=== PATIENT | female | born 1965 | race Caucasian/White ===

== ENCOUNTER 2019-01-14 17:38 | Inpatient (IN) | payer OTHER ==
[~2019-01-14] VITALS: Ht 165.1 cm; Wt 101.0 kg
[~2019-01-14 17:38] MED LIST: Bactrim Ds Tab1 EACH PO; CEPH500 PO; CETI5 PO; Excedrin Extra1 EACH PO; GABA300 PO; GUAI600T33 PO; IBUP800 PO
[2019-01-14 18:15] LABS: BASOPHILS ABSOLUTE AUTO 0.05 K/mm3 (0.00-0.23); BASOPHILS PERCENT AUTO 0 % (0-2); EOSINOPHILS ABSOLUTE AUTO 0.01 K/mm3 (0.00-0.68); EOSINOPHILS PERCENT AUTO 0 % (0-6); Hematocrit 45.8 % (33.0-51.0); Hemoglobin 13.8 g/dL (11.5-16.0); IMMATURE GRAN ABSOLUTE AUTO 0.05 K/mm3 (0.00-0.10); IMMATURE GRAN PERCENT AUTO 0 % (0-1); LYMPHOCYTES ABSOLUTE AUTO 0.77 K/mm3 (0.84-5.20); LYMPHOCYTES PERCENT AUTO 6 % (21-46); MONOCYTES ABSOLUTE AUTO 0.81 K/mm3 (0.16-1.47); MONOCYTES PERCENT AUTO 6 % (4-13); Mean Corpuscular HGB 26.3 pg (26.0-34.0); Mean Corpuscular HGB Conc 30.1 g/dL (31.5-36.5); Mean Corpuscular Volume 87 fL (80-100); NEUTROPHILS ABSOLUTE AUTO 11.57 K/mm3 (1.96-9.15); NEUTROPHILS PERCENT AUTO 87 % (41-73); NRBC ABSOLUTE 0.05 K/mm3 (0.00-0.02); NRBC Auto 0.4 /100 WBC (0.0-0.2); RDW Coefficient Variation 16.3 % (11.7-14.2); RDW Standard Deviation 51.8 fL (35.1-46.3); Red Blood Cell Count 5.24 M/mm3 (3.80-5.20); White Blood Cell Count 13.26 K/mm3 (4.00-11.30)
[2019-01-14 18:20] LABS: Mean Platelet Volume 9.8 fL (9.1-12.4); Platelet Count 282 K/mm3 (150-400)
[2019-01-14 18:40] LABS: Alanine Aminotransfer (ALT/SGP 29 U/L (12-78); Albumin, Blood 3.2 g/dL (3.4-5.0); Albumin/Globulin Ratio 0.8 (0.8-1.8); Alk Phos 141 U/L (50-136); Anion Gap 9 mmol/L (6-16); Aspartate Aminotrans (AST/SGOT 32 U/L (12-37); Bilirubin, Total 1.1 mg/dL (0.1-1.0); Blood Urea Nitrogen 7 mg/dL (8-24); CO2, Blood 27 mmol/L (21-32); Calcium, Blood 9.3 mg/dL (8.5-10.1); Chloride, Blood 96 mmol/L (98-108); Creatinine, Blood 0.58 mg/dL (0.40-1.00); Glomerular Filtration Rate >60 (60-); Glucose, Blood 106 mg/dL (70-99); Potassium, Blood 3.9 mmol/L (3.5-5.5); Sodium, Blood 132 mmol/L (136-145); Total Protein, Blood 7.2 g/dL (6.4-8.2); Troponin I 0.032 ng/mL (0.000-0.040)
[2019-01-14 20:39] LABS: Source, Urine Clean Catch
[2019-01-14 20:42] LABS: Appearance, Urine Clear (Clear); Bilirubin, Urine Neg (Neg); Blood, Urine 1+ (Neg); Color, Urine Amber (P-Yellow); Glucose Qualitative, Urine Neg (Neg); Ketones, Urine 1+ (Neg); Leukocyte Esterase, Urine 1+ (Neg); Nitrite, Urine Pos (Neg); Protein, Urine 3+ (Neg); Urobilinogen, Urine 1+ (Normal)
[2019-01-14 20:49] LABS: Bacteria Mod /hpf; Red Blood Cells, Urine 0-2 /hpf (0-2); Squamous Epithelial Cells Many /hpf (Few); White Blood Cells, Urine 0-2 /hpf (0-5)
[2019-01-14 20:53] LABS: U Amphetamine Screen Not Detected; U Barbituate Screen Not Detected; U Benzodiazapine Screen DETECTED; U Buprenorphine Screen Not Detected; U Cannabinoids Screen Not Detected; U Cocaine Screen Not Detected; U Methadone Screen Not Detected; U Methamphetamine Screen Not Detected; U Opiates Screen DETECTED; U Oxycodone Screen Not Detected; U Phencyclidine Screen Not Detected; U Propoxyphene Screen Not Detected
[2019-01-14 21:51] LABS: International Normalized Ratio 1.2; Prothrombin Time Results 12.5 Sec (9.7-11.5)
[2019-01-15 04:23] LABS: BASOPHILS ABSOLUTE AUTO 0.02 K/mm3 (0.00-0.23); BASOPHILS PERCENT AUTO 0 % (0-2); EOSINOPHILS PERCENT AUTO 0 % (0-6); Hematocrit 42.1 % (33.0-51.0); Hemoglobin 12.7 g/dL (11.5-16.0); IMMATURE GRAN ABSOLUTE AUTO 0.07 K/mm3 (0.00-0.10); IMMATURE GRAN PERCENT AUTO 1 % (0-1); LYMPHOCYTES ABSOLUTE AUTO 0.75 K/mm3 (0.84-5.20); LYMPHOCYTES PERCENT AUTO 7 % (21-46); MONOCYTES ABSOLUTE AUTO 0.28 K/mm3 (0.16-1.47); MONOCYTES PERCENT AUTO 3 % (4-13); Mean Corpuscular HGB 26.7 pg (26.0-34.0); Mean Corpuscular HGB Conc 30.2 g/dL (31.5-36.5); Mean Corpuscular Volume 88 fL (80-100); Mean Platelet Volume 9.9 fL (9.1-12.4); NEUTROPHILS ABSOLUTE AUTO 10.19 K/mm3 (1.96-9.15); NEUTROPHILS PERCENT AUTO 90 % (41-73); Platelet Count 269 K/mm3 (150-400); RDW Coefficient Variation 16.1 % (11.7-14.2); RDW Standard Deviation 52.3 fL (35.1-46.3); Red Blood Cell Count 4.76 M/mm3 (3.80-5.20); White Blood Cell Count 11.31 K/mm3 (4.00-11.30)
[2019-01-15 04:39] LABS: International Normalized Ratio 1.3; Prothrombin Time Results 13.5 Sec (9.7-11.5)
[2019-01-15 04:47] LABS: Alanine Aminotransfer (ALT/SGP 26 U/L (12-78); Albumin, Blood 2.9 g/dL (3.4-5.0); Albumin/Globulin Ratio 0.8 (0.8-1.8); Alk Phos 118 U/L (50-136); Anion Gap 6 mmol/L (6-16); Aspartate Aminotrans (AST/SGOT 22 U/L (12-37); Bilirubin, Total 0.8 mg/dL (0.1-1.0); Blood Urea Nitrogen 8 mg/dL (8-24); Bun/Creatinine Ratio 15.9 (12.0-20.0); CO2, Blood 29 mmol/L (21-32); Calcium, Blood 8.4 mg/dL (8.5-10.1); Chloride, Blood 100 mmol/L (98-108); Globulin, Blood 3.6 g/dL (2.2-4.0); Glomerular Filtration Rate >60 (60-); Glucose, Blood 143 mg/dL (70-99); Potassium, Blood 3.8 mmol/L (3.5-5.5); Sodium, Blood 135 mmol/L (136-145); Total Protein, Blood 6.5 g/dL (6.4-8.2)
[2019-01-15 04:48] LABS: Troponin I 0.033 ng/mL (0.000-0.040)
--- NOTE | 2019-01-15 07:47 | NUR ---
END OF SHIFT SUMMARY ASSUMED CARE OF PT FROM ED. PT TO ROOM, PALE COLOR. AFLUTTER 130'S, PER NU REPORT, TO FINISH SEPSSIS FLUIDS AND IV ABX TO SEE IF HR WOULD DECREASE. HR REMAINED @135. DR ZIEGLER CALLED REGARDING THIS, BP HAS REMAINED STABLE. DR ORDERED IV METOPROL 5MG ONCE, AND THEN ONCE MORE IF THE FIRST DOSE UNSUCCESFUL AT LOWERING HR BELOW 110. BOTH DOSES ULTIMATELY GIVEN ENDING WITH A TOTAL OF 10MG IV METOPROL. HR HAS REMAINED IN 130'S AFLUTTER. THIS HAS BEEN RELAYED TO ONCOMING NURSE. PT HAS REMAINED ON 2L, HAS DENIED CP/PRESSURE. PT ORDERED TO BE IN CONTACT PRECAUTIONS, MRSA CLEARED IN 2017, DAY NURSE TO CONTACT INFECTION CONTROL RERGARDING THIS MATTER. PT HAS RECEIVED SEPSIS PROTOCOL FLUIDS/ABX. VSS HAVE REMAINED STABLE EXCEPT HR. PT TO RECEOVE VENOUS ULCER DUPLEX THIS AM. CALL LIGHT WITHIN REACH, REPORT GIVEN TO ONCOMING NURSE JENISE.
[2019-01-15 13:18] LABS: Source, Urine Catheter
[2019-01-15 13:26] LABS: Bilirubin, Urine Neg (Neg); Blood, Urine Neg (Neg); Glucose Qualitative, Urine Neg (Neg); Ketones, Urine Neg (Neg); Leukocyte Esterase, Urine Neg (Neg); Nitrite, Urine Neg (Neg); Protein, Urine Neg (Neg); Specific Gravity, Urine 1.015 (1.003-1.022); Urobilinogen, Urine NORM (Normal); pH, Urine 6.5 (5.0-8.0)
[2019-01-15 13:33] LABS: Appearance, Urine Clear (Clear); Color, Urine Pale Yellow (P-Yellow)
--- NOTE | 2019-01-15 19:08 | NUR ---
Per admit trigger, I met with Geno to offer information regarding an Advanced Directive for her. She was pleasantly dismissive saying she has one completed at home. I encouraged providing Pinky with a copy.
--- NOTE | 2019-01-15 19:26 | NUR ---
PT HAD A GOOD DAY, SHE HAS BEEN UP AND DOWN EMOTIONALLY. PT SEEMS TO UNDERSTAND HER DIAGNOSIS AND CONDITION, THIS RN SPENT A LOT OF TIME ANSWERING QUESTIONS AND EXPLAINING HER CURRENT ILLNESS. PT EXPRESSED THANKS AND WHEN FAMILY ARRIVED TO UNIT, ASKED ME TO EXPLAIN TO HER FAMILY HER CONDITION. PT HAS NOT REQUIRED O2 TODAY. PT UP TO BSC WITH SBA FOR SAFETY. HEPARIN RUNNING AT 17 U/K/HR. BED LOCKED AND LOW, HOB ELEVATED, CALL LIGHT WITHIN EASY REACH OF PATIENT. GAVE REPORT TO JOSE NAQVI.
[2019-01-16 04:10] LABS: BASOPHILS ABSOLUTE AUTO 0.05 K/mm3 (0.00-0.23); BASOPHILS PERCENT AUTO 0 % (0-2); EOSINOPHILS ABSOLUTE AUTO 0.01 K/mm3 (0.00-0.68); EOSINOPHILS PERCENT AUTO 0 % (0-6); Hematocrit 39.7 % (33.0-51.0); Hemoglobin 11.9 g/dL (11.5-16.0); IMMATURE GRAN ABSOLUTE AUTO 0.08 K/mm3 (0.00-0.10); IMMATURE GRAN PERCENT AUTO 1 % (0-1); LYMPHOCYTES ABSOLUTE AUTO 2.14 K/mm3 (0.84-5.20); LYMPHOCYTES PERCENT AUTO 16 % (21-46); MONOCYTES ABSOLUTE AUTO 1.79 K/mm3 (0.16-1.47); MONOCYTES PERCENT AUTO 14 % (4-13); Mean Corpuscular HGB 26.5 pg (26.0-34.0); Mean Corpuscular Volume 88 fL (80-100); Mean Platelet Volume 10.1 fL (9.1-12.4); NEUTROPHILS ABSOLUTE AUTO 8.94 K/mm3 (1.96-9.15); NEUTROPHILS PERCENT AUTO 69 % (41-73); NRBC ABSOLUTE 0.05 K/mm3 (0.00-0.02); NRBC Auto 0.4 /100 WBC (0.0-0.2); Platelet Count 286 K/mm3 (150-400); RDW Coefficient Variation 16.4 % (11.7-14.2); RDW Standard Deviation 52.7 fL (35.1-46.3); Red Blood Cell Count 4.49 M/mm3 (3.80-5.20); White Blood Cell Count 13.01 K/mm3 (4.00-11.30)
--- NOTE | 2019-01-16 04:31 | NUR ---
SHIFT SUMMARY: PATIENT SLEPT WELL THIS SHIFT, HR SLOWLY DECREASING CLOSER TO NORMAL RANGE. ALL OTHER VSS, CALL LIGHT WITHIN REACH, BED LOW AND LOCKED.
[2019-01-16 04:35] LABS: Alanine Aminotransfer (ALT/SGP 23 U/L (12-78); Albumin, Blood 2.7 g/dL (3.4-5.0); Albumin/Globulin Ratio 0.8 (0.8-1.8); Alk Phos 106 U/L (50-136); Anion Gap 8 mmol/L (6-16); Aspartate Aminotrans (AST/SGOT 23 U/L (12-37); Bilirubin, Total 0.5 mg/dL (0.1-1.0); Blood Urea Nitrogen 15 mg/dL (8-24); CO2, Blood 29 mmol/L (21-32); Calcium, Blood 7.9 mg/dL (8.5-10.1); Chloride, Blood 103 mmol/L (98-108); Creatinine, Blood 0.65 mg/dL (0.40-1.00); Globulin, Blood 3.3 g/dL (2.2-4.0); Glomerular Filtration Rate >60 (60-); Glucose, Blood 104 mg/dL (70-99); Potassium, Blood 3.6 mmol/L (3.5-5.5); Sodium, Blood 140 mmol/L (136-145)
[2019-01-16 04:46] LABS: Digoxin (Lanoxin) 1.15 ug/mL (0.80-2.00)
--- NOTE | 2019-01-16 07:23 | NUR ---
RECEIVED REPORT AND ASSUMED CARE OF PATIENT, SHE IS RESTING, BUT STATES SHE DID NOT SLEEP LAST NIGHT. PT REPORTS THAT SHE HAS BEEN RECEIVING SUPPORT FROM HER SIGNIFICANT OTHER AND SON, AND IS CONTINUING TO RECKON WITH HER CONDITION. PT ON ROOM AIR WITH O2 SAT 95%. NO COMPLAINTS OF PAIN OR DISCOMFORT AT THIS TIME. BED LOCKED AND LOW, HOB ELEVATED, CALL LIGHT WITHIN EASY REACH.
[2019-01-16 08:28] LABS: Vancomycin, Trough 17.6 ug/mL (5.0-10.0)
--- NOTE | 2019-01-16 10:00 | NUR ---
ASSUMED CARE OF PATIENT, REPORT RECIEVED FROM JENISE GARCIA. PT IS RESTING COMFORTABLY IN BED WATCHING TV, PT DENIES NEEDS AT THIS TIME. WILL CONTINUE TO MONITOR.
--- NOTE | 2019-01-16 11:30 | NUR ---
ASSESSMENT: VSS. ASSESSMENT UNCHANGED. PT DENIES NEEDS AT THIS TIME, WILL CONTINUE TO MONITOR.
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
--- NOTE | 2019-01-16 17:35 | NUR ---
PATIENT HAS HAD A GOOD DAY. SHE HAS BEEN RESTING COMFORTABLY IN BED T/O THE SHIFT. VSS. PT CONTINUES TO BE ON HEPARIN GTT AT 15UNITS/KG/HR. DISCUSSED WITH PALLIATIVE CARE PTS PROGNOSIS AND THE IMPORTANCE OF THEIR ASSESSMENT AND FOLLOW UP. NO ACUTE CHANGES THIS SHIFT. WILL REPORT TO ONCOMING RN.
[2019-01-16 18:52] LABS: International Normalized Ratio 1.16; Prothrombin Time Results 12.1 Sec (9.7-11.5)
[2019-01-17 04:02] LABS: BASOPHILS ABSOLUTE AUTO 0.05 K/mm3 (0.00-0.23); BASOPHILS PERCENT AUTO 0 % (0-2); EOSINOPHILS ABSOLUTE AUTO 0.11 K/mm3 (0.00-0.68); EOSINOPHILS PERCENT AUTO 1 % (0-6); Hematocrit 41.1 % (33.0-51.0); Hemoglobin 12.2 g/dL (11.5-16.0); IMMATURE GRAN ABSOLUTE AUTO 0.05 K/mm3 (0.00-0.10); IMMATURE GRAN PERCENT AUTO 0 % (0-1); LYMPHOCYTES ABSOLUTE AUTO 2.46 K/mm3 (0.84-5.20); LYMPHOCYTES PERCENT AUTO 19 % (21-46); MONOCYTES PERCENT AUTO 12 % (4-13); Mean Corpuscular HGB 26.3 pg (26.0-34.0); Mean Corpuscular HGB Conc 29.7 g/dL (31.5-36.5); Mean Corpuscular Volume 89 fL (80-100); Mean Platelet Volume 9.9 fL (9.1-12.4); NEUTROPHILS ABSOLUTE AUTO 8.81 K/mm3 (1.96-9.15); NEUTROPHILS PERCENT AUTO 68 % (41-73); Platelet Count 283 K/mm3 (150-400); RDW Coefficient Variation 16.4 % (11.7-14.2); RDW Standard Deviation 52.6 fL (35.1-46.3); Red Blood Cell Count 4.64 M/mm3 (3.80-5.20); White Blood Cell Count 12.98 K/mm3 (4.00-11.30)
[2019-01-17 04:27] LABS: Magnesium, Blood 1.9 mg/dL (1.6-2.4)
[2019-01-17 04:28] LABS: Alanine Aminotransfer (ALT/SGP 25 U/L (12-78); Albumin, Blood 2.6 g/dL (3.4-5.0); Albumin/Globulin Ratio 0.7 (0.8-1.8); Alk Phos 107 U/L (50-136); Anion Gap 7 mmol/L (6-16); Aspartate Aminotrans (AST/SGOT 23 U/L (12-37); Bilirubin, Total 0.4 mg/dL (0.1-1.0); Blood Urea Nitrogen 13 mg/dL (8-24); Bun/Creatinine Ratio 20.6 (12.0-20.0); CO2, Blood 29 mmol/L (21-32); Calcium, Blood 8.2 mg/dL (8.5-10.1); Chloride, Blood 105 mmol/L (98-108); Creatinine, Blood 0.63 mg/dL (0.40-1.00); Globulin, Blood 3.5 g/dL (2.2-4.0); Glomerular Filtration Rate >60 (60-); Glucose, Blood 103 mg/dL (70-99); Phosphorus, Blood 2.8 mg/dL (2.5-4.9); Potassium, Blood 3.6 mmol/L (3.5-5.5); Sodium, Blood 141 mmol/L (136-145); Total Protein, Blood 6.1 g/dL (6.4-8.2)
[2019-01-17 04:35] LABS: Digoxin (Lanoxin) 0.76 ug/mL (0.80-2.00)
--- NOTE | 2019-01-17 07:35 | NUR ---
SHIFT SUMMARY PATIENT PLEASENT AND COOPERATIVE THROUGHOUT THE NIGHT. PATIENT APPEARED TO SLEEP WELL LAST NIGHT. HEPARIN GTT RUNNING PER ORDERS. IV ABX GIVEN PER ORDERS. PATIENT UP TO THE BSC WITH SBA. VITAL SIGNS CHARTED. PATIENT'S HEART RATE TRENDED IN THE 90'S-110'S THROUGHOUT MOST OF THE NIGHT PER TELE MONITOR. REPORT GIVEN TO ONCOMING RN.
[2019-01-17 10:38] LABS: International Normalized Ratio 1.1; Prothrombin Time Results 11.6 Sec (9.7-11.5)
--- NOTE | 2019-01-17 16:58 | NUR ---
Initial Visit: Palliative Care Consult for AD/POLST and Advanced Care Planning. Pt is A&O and denies pain at this time. Pt denies dyspnea at rest but reports occasional dyspnea with exertion. Pt denies anxiety but appears mildly anxious as evidenced by constant moving of her upper extremities and constant readjusting body in bed. Pt denies nausea. Engaged in therapeutic discussion regarding advanced care planning. Pt reports living at home with her mom. She states that they help each other for any needs of care. Pt reports that she is independent with her ADLs. Encouraged Pt to continue clear communication with doctors including when she is discharged. Encouraged Pt to consider complying with doctor recommendations. Pt states she intends to do everything the doctor recommends. Encouraged Pt to ask questions and express concerns. Pt aks "Is my heart going to get better"? Educated Pt on disease process. Pt asks "what is my life expectancy". Defered this question to her doctor. Encouraged Pt to write down all questions she thinks of on paper between now and doctors next visit. Pt reports plan to complete advance directive when her sister comes to visit. Encouraged Pt to ask for palliative care for any questions when completing form. Pt reports no other concerns at this time. Spoke with bedside nurse Caroline and she reports concerns of Pt current condition and her level of understanding or ability to retain information given to her. Palliative Care will remain available
--- NOTE | 2019-01-17 17:54 | NUR ---
SHIFT SUMMARY; PALLIATIVE CARE MET WITH PATIENT TODAY. PT ASKS MANY QUESTIONS ABOUT FURTHER TREATMENT AND HER CURRENT CONDITIN. PT APPEARS TEARY AND SEEMS TO GRASP SERIOUSNESS OF CONDITION AND BEGINS TO MAKE PLANS TO SPEAK WITH HER FAMILY AND TO MEND FENCES WITH HER CHILDREN. PT UP TO COMMODE NUMEROUS TIMES TODAY HAS LOOSE STOOLS. STATES SHE ALWAYS GETS THIS WAY WHEN SHE IS NERVOUS. IV HEPARIN INFUSING AT 19U/KG/HR ORDERED NO CHANGES NOTED. 2ND IV START BY ESTRELLITA PRIMER POWDER BLENDER WET IN RIGHT HAND FOR IV ANTIBIOTICS. WILL CONTINUE TO MONITOR THIS PATIENT UNTIL REPORT AND HAND OFF TO NOC SHIFT RN.
[2019-01-17 20:14] LABS: Vancomycin, Trough 21.7 ug/mL (5.0-10.0)
[2019-01-18 04:11] LABS: BASOPHILS ABSOLUTE AUTO 0.05 K/mm3 (0.00-0.23); BASOPHILS PERCENT AUTO 0 % (0-2); EOSINOPHILS ABSOLUTE AUTO 0.23 K/mm3 (0.00-0.68); EOSINOPHILS PERCENT AUTO 2 % (0-6); Hematocrit 41.1 % (33.0-51.0); IMMATURE GRAN ABSOLUTE AUTO 0.08 K/mm3 (0.00-0.10); IMMATURE GRAN PERCENT AUTO 1 % (0-1); LYMPHOCYTES ABSOLUTE AUTO 2.39 K/mm3 (0.84-5.20); LYMPHOCYTES PERCENT AUTO 19 % (21-46); MONOCYTES ABSOLUTE AUTO 1.38 K/mm3 (0.16-1.47); MONOCYTES PERCENT AUTO 11 % (4-13); Mean Corpuscular HGB 26.5 pg (26.0-34.0); Mean Corpuscular HGB Conc 29.2 g/dL (31.5-36.5); Mean Corpuscular Volume 91 fL (80-100); Mean Platelet Volume 10.2 fL (9.1-12.4); NEUTROPHILS ABSOLUTE AUTO 8.59 K/mm3 (1.96-9.15); NEUTROPHILS PERCENT AUTO 68 % (41-73); Platelet Count 283 K/mm3 (150-400); RDW Coefficient Variation 16.6 % (11.7-14.2); RDW Standard Deviation 55.8 fL (35.1-46.3); Red Blood Cell Count 4.53 M/mm3 (3.80-5.20); White Blood Cell Count 12.72 K/mm3 (4.00-11.30)
[2019-01-18 04:28] LABS: International Normalized Ratio 1.08; Prothrombin Time Results 11.4 Sec (9.7-11.5)
[2019-01-18 04:29] LABS: Anion Gap 7 mmol/L (6-16); Blood Urea Nitrogen 10 mg/dL (8-24); Bun/Creatinine Ratio 17.6 (12.0-20.0); CO2, Blood 29 mmol/L (21-32); Calcium, Blood 8.1 mg/dL (8.5-10.1); Chloride, Blood 106 mmol/L (98-108); Creatinine, Blood 0.57 mg/dL (0.40-1.00); Glomerular Filtration Rate >60 (60-); Glucose, Blood 121 mg/dL (70-99); Potassium, Blood 3.2 mmol/L (3.5-5.5); Sodium, Blood 142 mmol/L (136-145)
--- NOTE | 2019-01-18 06:34 | NUR ---
VTACH PATIENT HAD APPROX A 10 SECOND RUN OF VTACH. PATIENT ASYMPTOMATIC AT THIS TIME. WILL CONTINUE TO MONITOR.
--- NOTE | 2019-01-18 06:48 | NUR ---
SHIFT SUMMARY PATIENT PLEASENT AND COOPERATIVE THROUGHOUT THE NIGHT. PATIENT HAS BEEN TEARFUL AT TIMES THROUGHOUT THE NIGHT. PATIENT STATES SHE IS STARTING TO UNDERSTAND THAT HER OVERALL PROGNOSIS IS NOT GOOD. PATIENT PROVIDED WITH APPROPRIATE SUPPORT. PATIENT APPEARED TO SLEEP WELL ON AND OFF THROUGHOUT THE NIGHT. 2L O2 PLACED FOR SEVERAL HOURS WHILE PATIENT WAS SLEEPING DEEPLY, PATIENT BACK ON RA NOW THAT SHE IS AWAKE. HEPARIN GTT RUNNING PER ORDERS. VITAL SIGNS CHARTED. WILL CONTINUE TO MONITOR PATIENT AND REPORT TO ONCOMING RN.
--- NOTE | 2019-01-18 10:36 | NUR ---
ASSUMED CARE AND COMFORT OF THIS PATIENT AT AM SHIFT CHANGE. SHE WAS AWAKE AND WATCHING TV. DENIES ANY WANTS OR NEEDS. USES BEDSIDE COMMODE WITHOUT ASSIST. COMES TO SEE PATIENT TODAY AND SHE HAS PLEASANT AFFECT AND SPEAKS OPENLY ABOUT HER CURRENT CONDITION. PT EXPRESSES THAT SHE IS CONCERNED THAT HER MOM IS LOSING HER HOUSE AND THAT SHE MAY NOT HAVE A PLACE TO GO HOME TO IF HER MOM LOSES THE HOUSE WHERE SHE IS CURRENTLY STAYING. SOCIAL SERVICE CONSULT HAS BEEN ORDERED.
--- NOTE | 2019-01-18 19:26 | NUR ---
END OF SHIFT; PT HAS PLEASANT AFFECT DURING AFTERNOON. COOPERATIVE WITH CARE. COMES TO SEE PATIENT AND PLANS MADE FOR CARE. IS CONSULTED AND CONSULT IS CALLED IN BY THIS RN TO CELL. PT REMAINS IN BED DURING DAY BECOMES INCREASINGLY DIZZY WHEN UP TO BEDSIDE COMMODE. PT STARTED ON LASIX TODAY WITH GOOD RESULTS. WILL CONTINUE TO MONITOR THIS PATIENT UNTIL REPORT TO DEBORAH GARCIA.
[2019-01-18 20:10] LABS: Vancomycin, Trough 16.8 ug/mL (5.0-10.0)
[2019-01-19 05:22] LABS: BASOPHILS ABSOLUTE AUTO 0.08 K/mm3 (0.00-0.23); BASOPHILS PERCENT AUTO 1 % (0-2); EOSINOPHILS ABSOLUTE AUTO 0.28 K/mm3 (0.00-0.68); EOSINOPHILS PERCENT AUTO 3 % (0-6); Hematocrit 40.5 % (33.0-51.0); IMMATURE GRAN ABSOLUTE AUTO 0.07 K/mm3 (0.00-0.10); IMMATURE GRAN PERCENT AUTO 1 % (0-1); LYMPHOCYTES ABSOLUTE AUTO 2.47 K/mm3 (0.84-5.20); LYMPHOCYTES PERCENT AUTO 22 % (21-46); MONOCYTES ABSOLUTE AUTO 1.22 K/mm3 (0.16-1.47); MONOCYTES PERCENT AUTO 11 % (4-13); Mean Corpuscular HGB 26.1 pg (26.0-34.0); Mean Corpuscular HGB Conc 29.6 g/dL (31.5-36.5); NEUTROPHILS ABSOLUTE AUTO 7.29 K/mm3 (1.96-9.15); NEUTROPHILS PERCENT AUTO 64 % (41-73); Platelet Count 327 K/mm3 (150-400); RDW Coefficient Variation 16.6 % (11.7-14.2); RDW Standard Deviation 52.7 fL (35.1-46.3); White Blood Cell Count 11.41 K/mm3 (4.00-11.30)
[2019-01-19 05:23] LABS: Mean Corpuscular Volume 88 fL (80-100)
[2019-01-19 05:39] LABS: International Normalized Ratio 1.17; Prothrombin Time Results 12.2 Sec (9.7-11.5)
[2019-01-19 05:43] LABS: Magnesium, Blood 1.9 mg/dL (1.6-2.4); Uric Acid, Blood 4.4 mg/dL (2.6-6.0)
[2019-01-19 05:48] LABS: Alanine Aminotransfer (ALT/SGP 24 U/L (12-78); Albumin, Blood 2.5 g/dL (3.4-5.0); Albumin/Globulin Ratio 0.7 (0.8-1.8); Alk Phos 105 U/L (50-136); Anion Gap 7 mmol/L (6-16); Aspartate Aminotrans (AST/SGOT 26 U/L (12-37); Bilirubin, Total 0.4 mg/dL (0.1-1.0); Blood Urea Nitrogen 6 mg/dL (8-24); Bun/Creatinine Ratio 10.5 (12.0-20.0); CO2, Blood 31 mmol/L (21-32); Calcium, Blood 8.4 mg/dL (8.5-10.1); Chloride, Blood 103 mmol/L (98-108); Creatinine, Blood 0.57 mg/dL (0.40-1.00); Globulin, Blood 3.7 g/dL (2.2-4.0); Glomerular Filtration Rate >60 (60-); Glucose, Blood 110 mg/dL (70-99); Potassium, Blood 3.3 mmol/L (3.5-5.5); Sodium, Blood 141 mmol/L (136-145); Total Protein, Blood 6.2 g/dL (6.4-8.2)
[2019-01-19 05:58] LABS: Digoxin (Lanoxin) 0.78 ug/mL (0.80-2.00)
--- NOTE | 2019-01-19 06:21 | NUR ---
SHIFT SUMMARY PATIENT PLEASENT AND COOPERATIVE THROUGHOUT THE NIGHT. PATIENT APPEARED TO BE IN BETTER SPIRITS THAN THE PREVIOUS NIGHT. PATIENT APPEARED TO SLEEP WELL LAST NIGHT. PATIENT'S HEPARIN GTT CONTINUES TO RUN PER ORDERS. PATIENT MEDICATED FOR ANXIETY X 1. IV ABX GIVEN PER ORDERS. VITAL SIGNS CHARTED. WILL CONTINUE TO MONITOR PATIENT AND REPORT TO ONCOMING RN.
--- NOTE | 2019-01-19 07:15 | NUR ---
RECEIVED REPORT FROM JOSE CABRERA, AND ASSUMED CARE OF PT.
--- NOTE | 2019-01-19 09:32 | NUR ---
NURSING SUMMARY ALERT AND ORIENTED X 4. AFLUTTER ON TELEMETRY, HR 108, 2+ EDEMAN TO BLE'S. LUNGS WITH CRACKLES AT THE BASES, ROOM AIR, DENIES COUGH. INSTRUCTED RE: CALLING FOR ASSISTANCE OUT OF BED NEEDED, VOIDS PER BEDSIDE COMMODE, STANDBY ASSISTANCE. TOLERATING A REGULAR DIET. MULTIPLE SCATTERED SORES THROUGHOUT BODY, MANY HEALED SCARS, RIGHT UPPER ARM ULCER DUE TO NEEDLE DRUG USE, CDI. ON ANTIBIOTICS. HEPARIN GTT INFUSING AT 21 UNITS/KG/HR, NEXT PT DRAW AT 1200. NO SIGNS AND SYMPTOMS OF BLEEDING. DENIES PAIN. DENIED NEED FOR XANAX. TWO IV SITES.
--- NOTE | 2019-01-19 14:30 | NUR ---
APTT = 73, HEPARIN GTT THERAPEUTIC AT 21 UNITS/KG/HR.
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
[2019-01-20 04:04] LABS: BASOPHILS ABSOLUTE AUTO 0.07 K/mm3 (0.00-0.23); BASOPHILS PERCENT AUTO 1 % (0-2); EOSINOPHILS ABSOLUTE AUTO 0.35 K/mm3 (0.00-0.68); EOSINOPHILS PERCENT AUTO 3 % (0-6); Hematocrit 38.3 % (33.0-51.0); Hemoglobin 11.4 g/dL (11.5-16.0); IMMATURE GRAN ABSOLUTE AUTO 0.08 K/mm3 (0.00-0.10); IMMATURE GRAN PERCENT AUTO 1 % (0-1); LYMPHOCYTES ABSOLUTE AUTO 2.38 K/mm3 (0.84-5.20); LYMPHOCYTES PERCENT AUTO 20 % (21-46); MONOCYTES ABSOLUTE AUTO 1.44 K/mm3 (0.16-1.47); MONOCYTES PERCENT AUTO 12 % (4-13); Mean Corpuscular HGB 26.5 pg (26.0-34.0); Mean Corpuscular HGB Conc 29.8 g/dL (31.5-36.5); Mean Corpuscular Volume 89 fL (80-100); Mean Platelet Volume 9.9 fL (9.1-12.4); NEUTROPHILS ABSOLUTE AUTO 7.63 K/mm3 (1.96-9.15); NEUTROPHILS PERCENT AUTO 64 % (41-73); Platelet Count 316 K/mm3 (150-400); RDW Coefficient Variation 16.6 % (11.7-14.2); RDW Standard Deviation 53.7 fL (35.1-46.3); Red Blood Cell Count 4.31 M/mm3 (3.80-5.20); White Blood Cell Count 11.95 K/mm3 (4.00-11.30)
[2019-01-20 04:34] LABS: International Normalized Ratio 1.47
--- NOTE | 2019-01-20 07:15 | NUR ---
RECEIVED REPORT FROM JOSE KELLEY, AND ASSUMED CARE OF PT. HEART CENTER AT BEDSIDE SETTING UP FOR BEDSIDE RUBIN PROCEDURE.
--- NOTE | 2019-01-20 07:18 | NUR ---
PCU NO SHIFT SUMMARY PATIENT REMAINS ALERT AND ORIENTED X4. NO ACUTE EVENTS T/O SHIFT NOTED. PATIENT REMAIN IN AFLUTTER T/O SHIFT IN THE 90'S-110'S WITH NO ACUTE EVENTS NOTED PER MONITOR. PATIENT DENIES PAIN T/O SHIFT. PATIENT USES BEDSIDE COMMODE AND TOLERATES MOVEMENT WELL TO BEDSIDE. LUNG SOUNDS CLEAR TO DIM ON ROOM AIR. VSS. NPO AFTER MIDNIGHT RUBIN BEING DONE THIS AM. REPORT TO DAYSLIV GARCIA.
--- NOTE | 2019-01-20 08:00 | NUR ---
RUBIN COMPLETE, NO FINDINGS, RECEIVED VERSED 2 MG IVP AND FENTANYL 100 MCG IVP. PT AWAKE, ALERT, TALKING, OCCASSIONAL COUGHING, 2L O2 NC, SATS 90-93%. PER HEART CENTER NURSE, PT MAY BEGIN EATING HER BREAKFAST AT 0830. PT VERBALIZED UNDERSTANDING.
--- NOTE | 2019-01-20 08:30 | NUR ---
PT ABLE TO SWALLOW WITHOUT DIFFICULTY, BEGINNING TO EAT HER BREAKFAST. ROUTINE MEDICATIONS GIVEN. HEPARTIN DRIP INFUSING AT 20.5 UNITS/HR = 30.3 CC/HR.
--- NOTE | 2019-01-20 12:21 | NUR ---
PT HAD A 14-BEAT RUN OF VT. ASYMPTOMATIC, VSS. ADVISED DR. FRIAS.
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
--- NOTE | 2019-01-20 18:04 | NUR ---
NURSING SUMMARY ALERT AND ORIENTED X4. LUNGS CLEAR, ROOM AIR, SATS USUALLY IN THE HIGH 90%'S, DESATS WITH SLEEP AT TIMES, APPLYING 2L DURING NOC. AFLUTTER ON TELEMETRY, HR 90'S - 109. EXPERIENCE 14-BEAT RUN OF VTACH, ASYMPTOMATIC, VSS. EF = 5-10%, BLE EDEMA 2+. TOLERATING A REGULAR DIET. USES BEDSIDE COMMODE INDEPENDENTLY. BM TODAY. VOIDS ALOT, DIURETICS. MULTIPLE SCABS AND HEALING SCARS THROUGHOUT BODY, CONTACT DERMITITIS, PT ADMITS TO PICKING AT THESE SCABS. MILD JUANDICE IN SCLERA'S. HEPARIN GTT INFUSING AT 18.5 UNITS/KG/HR = 27.4 CC/HR, NEXT PTT SCHEDULED AT 1900. RUBIN DONE TODAY, NEGATIVE. RIGHT WRIST 20G AND LEFT HAND 20G IV SITES.
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
[2019-01-21 03:54] LABS: BASOPHILS ABSOLUTE AUTO 0.06 K/mm3 (0.00-0.23); BASOPHILS PERCENT AUTO 1 % (0-2); EOSINOPHILS ABSOLUTE AUTO 0.38 K/mm3 (0.00-0.68); EOSINOPHILS PERCENT AUTO 3 % (0-6); Hematocrit 37.8 % (33.0-51.0); Hemoglobin 11.1 g/dL (11.5-16.0); IMMATURE GRAN ABSOLUTE AUTO 0.09 K/mm3 (0.00-0.10); IMMATURE GRAN PERCENT AUTO 1 % (0-1); LYMPHOCYTES ABSOLUTE AUTO 2.49 K/mm3 (0.84-5.20); LYMPHOCYTES PERCENT AUTO 22 % (21-46); MONOCYTES ABSOLUTE AUTO 1.22 K/mm3 (0.16-1.47); MONOCYTES PERCENT AUTO 11 % (4-13); Mean Corpuscular HGB 26.3 pg (26.0-34.0); Mean Corpuscular HGB Conc 29.4 g/dL (31.5-36.5); Mean Corpuscular Volume 90 fL (80-100); Mean Platelet Volume 9.9 fL (9.1-12.4); NEUTROPHILS ABSOLUTE AUTO 7.16 K/mm3 (1.96-9.15); NEUTROPHILS PERCENT AUTO 63 % (41-73); Platelet Count 330 K/mm3 (150-400); RDW Coefficient Variation 16.7 % (11.7-14.2); RDW Standard Deviation 54.4 fL (35.1-46.3); Red Blood Cell Count 4.22 M/mm3 (3.80-5.20)
[2019-01-21 04:12] LABS: International Normalized Ratio 1.98; Prothrombin Time Results 19.7 Sec (9.7-11.5)
[2019-01-21 04:24] LABS: Anion Gap 4 mmol/L (6-16); Blood Urea Nitrogen 9 mg/dL (8-24); Bun/Creatinine Ratio 16.2 (12.0-20.0); CO2, Blood 33 mmol/L (21-32); Calcium, Blood 8.7 mg/dL (8.5-10.1); Chloride, Blood 103 mmol/L (98-108); Creatinine, Blood 0.55 mg/dL (0.40-1.00); Glomerular Filtration Rate >60 (60-); Glucose, Blood 107 mg/dL (70-99); Potassium, Blood 3.9 mmol/L (3.5-5.5); Sodium, Blood 140 mmol/L (136-145)
--- NOTE | 2019-01-21 06:55 | NUR ---
PATIENT SLEPT ABOUT FOUR HOURS LAST NIGHT; PATIENT BOYFRIEND SLEEPING IN RECLINER BEDSIDE; VSS. HEPARIN WAS DECREASED ONCE LAST NIGHT FOR CH APTT. NO OTHER ACUTE CHANGES TO REPORT. WILL CONTINUE TO MONITOR AND ASSESS UNTIL END OF SHIFT.
--- NOTE | 2019-01-21 12:00 | NUR ---
PTT 82.7, THERAPEUTIC, NO CHANGE IN HEPARIN GTT. HEPARIN GTT INFUSING AT 17.5 UNITS/KG/HR = 25.9 CC/HR.
--- NOTE | 2019-01-21 13:39 | NUR ---
Pt visit this afternoon. Pt denies pain at this time but reports occasional pain in her front upper right rib cage area. She denies anxiety and SOB at this time. Listened as Pt expressed her plan to remain positive and states that "God hasn't told me I'm dying and I don't plan on dying". Pt states she was having a pitty alliance party yesterday but is no longer going to have that attitude. She states plan to remain positive. Attempted to educated Pt on the emotions she may experience after receiveing difficult news but this RN is unsure how much she retained. Kept visit as therapeutic as possible and explained when she is ready she has option for hospice. V/U made by Pt. No other concerns reported at this time. Palliative Care will remain available for therapeutic visits.
--- NOTE | 2019-01-21 17:54 | NUR ---
Pal Spiritual Care note: Geno was energenic and upbeat when I entered room, she was also very talkative. She tells me that she realized this morning that she is not dying. "I don't feel like I am dying. I feel better than I did a couple days ago. I'm gonna come back in five years and show everybody here they were wrong." I suspect Geno is experiencing denial. This is quite normal and a form of self-protection when something overwhelming has occurred. I listened empathically and supported her feeling of renewal. She appears to trust me and I do not want to damage this by attempting to disuade her from her reality. Her sister Mallory arrived and we completed an Advanced Directive. Geno does not want futile medical interventions. She wants her sister as her MPOA. They appear to have a good relationship. I will continue to food counselor Geno as schedule permits.
--- NOTE | 2019-01-21 22:46 | NUR ---
Heprin gtt verified at shift change with JOSE Ramirez Heprin gtt verified at bag change (no rate change) with JOSE Jara.
[2019-01-22 01:32] LABS: BASOPHILS ABSOLUTE AUTO 0.05 K/mm3 (0.00-0.23); BASOPHILS PERCENT AUTO 1 % (0-2); EOSINOPHILS ABSOLUTE AUTO 0.34 K/mm3 (0.00-0.68); EOSINOPHILS PERCENT AUTO 3 % (0-6); Hematocrit 40.6 % (33.0-51.0); Hemoglobin 11.9 g/dL (11.5-16.0); IMMATURE GRAN ABSOLUTE AUTO 0.07 K/mm3 (0.00-0.10); IMMATURE GRAN PERCENT AUTO 1 % (0-1); LYMPHOCYTES ABSOLUTE AUTO 3.15 K/mm3 (0.84-5.20); LYMPHOCYTES PERCENT AUTO 29 % (21-46); MONOCYTES ABSOLUTE AUTO 1.21 K/mm3 (0.16-1.47); MONOCYTES PERCENT AUTO 11 % (4-13); Mean Corpuscular HGB 26.3 pg (26.0-34.0); Mean Corpuscular HGB Conc 29.3 g/dL (31.5-36.5); Mean Corpuscular Volume 90 fL (80-100); Mean Platelet Volume 9.8 fL (9.1-12.4); NEUTROPHILS ABSOLUTE AUTO 6.06 K/mm3 (1.96-9.15); NEUTROPHILS PERCENT AUTO 56 % (41-73); Platelet Count 345 K/mm3 (150-400); RDW Coefficient Variation 16.6 % (11.7-14.2); RDW Standard Deviation 54.7 fL (35.1-46.3); Red Blood Cell Count 4.52 M/mm3 (3.80-5.20); White Blood Cell Count 10.88 K/mm3 (4.00-11.30)
[2019-01-22 02:04] LABS: Alanine Aminotransfer (ALT/SGP 23 U/L (12-78); Albumin, Blood 2.7 g/dL (3.4-5.0); Albumin/Globulin Ratio 0.7 (0.8-1.8); Alk Phos 112 U/L (50-136); Anion Gap 5 mmol/L (6-16); Aspartate Aminotrans (AST/SGOT 23 U/L (12-37); Bilirubin, Total 0.2 mg/dL (0.1-1.0); Blood Urea Nitrogen 10 mg/dL (8-24); Bun/Creatinine Ratio 15.8 (12.0-20.0); CO2, Blood 34 mmol/L (21-32); Calcium, Blood 9.1 mg/dL (8.5-10.1); Chloride, Blood 102 mmol/L (98-108); Creatinine, Blood 0.63 mg/dL (0.40-1.00); Globulin, Blood 3.9 g/dL (2.2-4.0); Glomerular Filtration Rate >60 (60-); Glucose, Blood 104 mg/dL (70-99); Potassium, Blood 3.9 mmol/L (3.5-5.5); Sodium, Blood 141 mmol/L (136-145); Total Protein, Blood 6.6 g/dL (6.4-8.2)
[2019-01-22 02:16] LABS: International Normalized Ratio 2.98; Prothrombin Time Results 28.6 Sec (9.7-11.5)
--- NOTE | 2019-01-22 06:33 | NUR ---
Shift Summary No acute changes this shift. Heprin gtt continues to infuse per orders. VSS. Pt in no apparent sign of distress. Denies chest pain, pressure, SOB. Pt alert and oriented, responds appropriately. Makes needs known. uses call light. transfers SBA to BSC. Pt has been tearful on and off this shift d/t poor prognosis. Pt remains RA, no changes from initial shift assessment. Will continue to monitor until report given to day RN.
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
--- NOTE | 2019-01-22 17:11 | NUR ---
Pt visit this afternoon. Pt reports managed pain and denies dyspnea at this time. Mild anxiety noted. Pt's mom and sister present during visit. Pt reports feeling tired today and she states may be due to over doing it yesterday. Pt also reports working with OT and felt tired afterwards. Listened as Pt expressed feeling different emotions over the last couple of days. Educated Pt these emotions are normal such as anger, sadness, denial. Pt confirms experiencing these emotions. Suggested reflection and time in order coming to terms with diagnosis and prognosis. Pt reports no other concerns at this time. Spoke with bedside nurse Marivel and she reports no concerns at this time. Spoke with Quita Sharma and she reports consideration of in patient cardio rehab. Palliative Care will remain available
--- NOTE | 2019-01-22 17:33 | NUR ---
SHIFT SUMMARY PT ALERT AND ORIENTED. VITAL SIGNS STABLE. PT TEARFUL AT TIMES TODAY ABOUT PROGNOSIS. PT ABLE TO AMBULATE TO BATHROOM NEEDED WITH SBA. PT STATES SHE GETS SHORT OF BREATH UPON AMBULATION. O2 SATS REMAIN ABOVE 92% ON RA OR 2L NC NEEDED. PT REQUESTED TO GO OUTSIDE TO SMOKE THIS SHIFT, BUT PT REMINDED HOW IMPORTANT IT IS TO QUIT SMOKING. PT EDUCATED THAT WE ARE UNABLE TO MONITOR HER OUTSIDE AND IT IS AGAINST OR JUDGEMENT FOR HER TO GO OUTSIDE. PT HAVING FREQUENT LOOSE STOOL THIS SHIFT AND WAS STARTED ON PROBIOTIC. NO OTHER COMPLAINTS THIS SHIFT. WILL CONTINUE TO MONITOR AND REPORT TO ONCOMING RN. CALL LIGHT IN REACH. FAMILY AT BEDSIDE.
--- NOTE | 2019-01-22 22:02 | NUR ---
Pt restless upon arrival this evening. Pt states pain 8/10 in upper right quadrant. Pt states she has told the MD this afternoon. Pt states she feels slightly SOB at rest. Pt repositioned and medicated with xanex and tylenol per emar with relief as pt is currently sleeping and appears comfortable. VSS, see shift assessment for detailed assessment. Will continue to monitor and update.
[2019-01-23 04:19] LABS: Alanine Aminotransfer (ALT/SGP 29 U/L (12-78); Albumin, Blood 2.8 g/dL (3.4-5.0); Albumin/Globulin Ratio 0.7 (0.8-1.8); Alk Phos 119 U/L (50-136); Anion Gap 4 mmol/L (6-16); Aspartate Aminotrans (AST/SGOT 24 U/L (12-37); Bilirubin, Total 0.3 mg/dL (0.1-1.0); Blood Urea Nitrogen 10 mg/dL (8-24); Bun/Creatinine Ratio 17.3 (12.0-20.0); CO2, Blood 33 mmol/L (21-32); Chloride, Blood 101 mmol/L (98-108); Creatinine, Blood 0.58 mg/dL (0.40-1.00); Glomerular Filtration Rate >60 (60-); Glucose, Blood 161 mg/dL (70-99); Sodium, Blood 138 mmol/L (136-145); Total Protein, Blood 6.8 g/dL (6.4-8.2)
--- NOTE | 2019-01-23 05:25 | NUR ---
Shift Summary Pt with uneventful night. No acute changes this shift. Pt initially restless and anxious, pt states anxiety has resolved and pt slept throughout this shift. VSS. No changes from initial shift assessment. Pt denies chest pain or pressure. Pt states ABD pain improved with rest and repositioning. Pt able to reposition self indepenantly. Pt to BSC, transfers independantly. Pt denies lightheadedness, denies SOB. No changes on tele. calls appropriately, remains alert and oriented, makes needs known. Will continue monitoring and updating as needed.
[2019-01-23 06:07] LABS: International Normalized Ratio 2.91
[2019-01-23 12:31] LABS: Digoxin (Lanoxin) 1.76 ug/mL (0.80-2.00)
[2019-01-23] MEDS ORDERED: LANOXIN250 MC1 PO (13:53)
[2019-01-23] MEDS ORDERED: FLUC200 PO (13:54)
[2019-01-23] MEDS ORDERED: FURO20 PO (13:56)
[2019-01-23] MEDS ORDERED: GABA300 PO (13:58)
[2019-01-23] MEDS ORDERED: Lisinopril2.5 MG PO (13:59)
[2019-01-23] MEDS ORDERED: METO25ER PO (14:06)
[2019-01-23] MEDS ORDERED: NICO21TP TOP (14:07)
[2019-01-23] MEDS ORDERED: Micro-K10 MEQ PO (14:08)
[2019-01-23] MEDS ORDERED: Aldactone25 MG PO (14:09)
[2019-01-23] MEDS ORDERED: WARF2.5 PO (14:10)
--- NOTE | 2019-01-23 15:56 | NUR ---
PT DISCHARGED TO HOME. BOYFRIEND TO DRIVE HER HOME. PT OUT TO LOBBY VIA WHEEL CHAIR. MEDS ARE FAXED TO [facility] AND CONFIRMED FAX VIA TELEPHONE TO [facility] RECEIPT.
[2019-01-24 02:07] LABS: HBSAG SCREEN Negative (Negative); HCV ANTIBODY <0.1 (0.0-0.9)
[2019-01-24 02:07] LABS: HIV SCREEN 4TH GENERATION WRFX Non Reactive (Non Reactive)
== END 2019-01-23 15:50 | disposition home or self-care (01) | DRG 871 ==
LOC: ER 17:38 → PCU 20:27
PROVIDERS: Hospitalist; Internal Medicine; Internal Medicine Cardiovascular Disease; Nurse Practitioner Acute Care; Physician Assistant; Student in an Organized Health Care Education/Training Program; ADMIT Internal Medicine
PROC: B24BZZ4 Ultrasonography of Heart with Aorta, Transesophageal (ICD-10-PCS; principal; 2019-01-20)
DX: B37.7 Candidal sepsis (principal); J96.01 Acute respiratory failure with hypoxia; I26.99 Other pulmonary embolism without acute cor pulmonale; I50.21 Acute systolic (congestive) heart failure; L03.311 Cellulitis of abdominal wall; I42.9 Cardiomyopathy, unspecified; I47.2 Ventricular tachycardia; I82.C11 Acute embolism and thrombosis of right internal jugular vein; K52.1 Toxic gastroenteritis and colitis; F17.210 Nicotine dependence, cigarettes, uncomplicated; R65.20 Severe sepsis without septic shock; F31.9 Bipolar disorder, unspecified; J43.9 Emphysema, unspecified; Z66 Do not resuscitate; T50.905A Adverse effect of unspecified drugs, medicaments and biological substances, initial encounter; Y92.239 Unspecified place in hospital as the place of occurrence of the external cause; Z79.01 Long term (current) use of anticoagulants
CPT/HCPCS: 36415; 71045; 71260; 80048; 80053; 80162; 80202; 81001; 81003; 83605; 83735; 83880; 84100; 84443; 84484; 84550; 85025; 85610; 85651; 85730; 86140; 86803; 87040; 87077; 87086; 87103; 87106; 87186; 87340; 87389; 93005; 93010; 93306; 93312; 93325; 93971; 94760; 94761; 96361; 96365-59; 96375-59; 97110; 97162; 97166; 97530; 97535; 99152; 99285-25; A9270; C9113; J0696; J1160; J1450; J1644; J2250; J2405; J2704; J2930; J3010; J3370; J7030; J7050; Q9967

== ENCOUNTER → 2019-04-22 | Outpatient (CLI) | payer OTHER ==
[~2019-04-22] MED LIST changes: +Aldactone25 MG PO; +FLUC200 PO; +FURO20 PO; +LANOXIN250 MC1 PO; +Lisinopril2.5 MG PO; +METO25ER PO; +Micro-K10 MEQ PO; +NICO21TP TOP; +WARF2.5 PO
== END | disposition home or self-care (01) ==
LOC: LAB EV 17:00 → LAB SHORT 17:00
DX: F19.10 Other psychoactive substance abuse, uncomplicated (principal); N39.0 Urinary tract infection, site not specified
CPT/HCPCS: 87077; 87086; 87186; G0480

== ENCOUNTER → 2020-05-16 | Outpatient (CLI) | payer OTHER ==
[2020-05-16 14:50] LABS: BASOPHILS ABSOLUTE AUTO 0.06 K/mm3 (0.00-0.23); BASOPHILS PERCENT AUTO 1 % (0-2); EOSINOPHILS ABSOLUTE AUTO 0.24 K/mm3 (0.00-0.68); EOSINOPHILS PERCENT AUTO 2 % (0-6); Hematocrit 45.7 % (33.0-51.0); Hemoglobin 14.8 g/dL (11.5-16.0); IMMATURE GRAN ABSOLUTE AUTO 0.05 K/mm3 (0.00-0.10); IMMATURE GRAN PERCENT AUTO 1 % (0-1); LYMPHOCYTES ABSOLUTE AUTO 2.33 K/mm3 (0.84-5.20); LYMPHOCYTES PERCENT AUTO 22 % (21-46); MONOCYTES ABSOLUTE AUTO 0.74 K/mm3 (0.16-1.47); MONOCYTES PERCENT AUTO 7 % (4-13); Mean Corpuscular HGB 29.6 pg (26.0-34.0); Mean Corpuscular HGB Conc 32.4 g/dL (31.5-36.5); Mean Corpuscular Volume 91 fL (80-100); Mean Platelet Volume 9.7 fL (9.1-12.4); NEUTROPHILS ABSOLUTE AUTO 7.42 K/mm3 (1.96-9.15); NEUTROPHILS PERCENT AUTO 68 % (41-73); Platelet Count 363 K/mm3 (150-400); RDW Coefficient Variation 15.5 % (11.7-14.2); RDW Standard Deviation 51.1 fL (35.1-46.3); White Blood Cell Count 10.84 K/mm3 (4.00-11.30)
[2020-05-16 15:04] LABS: Alanine Aminotransfer (ALT/SGP 48 U/L (12-78); Albumin, Blood 3.7 g/dL (3.4-5.0); Albumin/Globulin Ratio 0.9 (0.8-1.8); Alk Phos 123 U/L (40-126); Anion Gap 9 mmol/L (6-16); Aspartate Aminotrans (AST/SGOT 37 U/L (12-37); Bilirubin, Total 0.3 mg/dL (0.1-1.0); Blood Urea Nitrogen 10 mg/dL (8-24); Bun/Creatinine Ratio 11.6 (12.0-20.0); CO2, Blood 31 mmol/L (21-32); Calcium, Blood 9.4 mg/dL (8.5-10.1); Chloride, Blood 102 mmol/L (98-108); Creatinine, Blood 0.86 mg/dL (0.40-1.00); Globulin, Blood 4.3 g/dL (2.2-4.0); Glomerular Filtration Rate >60 (60-); Glucose, Blood 123 mg/dL (70-99); Potassium, Blood 3.2 mmol/L (3.5-5.5); Sodium, Blood 142 mmol/L (136-145)
== END ==
LOC: LAB EV 14:12 → LAB SHORT 14:12
PROVIDERS: Nurse Practitioner
DX: I82.C19 Acute embolism and thrombosis of unspecified internal jugular vein (principal); I50.9 Heart failure, unspecified
CPT/HCPCS: 36415; 80053; 83880; 85025; 85610